=== PATIENT | female | born 1990 | race Asian ===

== ENCOUNTER → 2017-07-04 | Outpatient (CLI) | payer BC ==
[2017-07-04 12:13] LABS: HEMATOCRIT 35.5 % (37-47); HEMOGLOBIN 12.1 g/dL (12.0-16.0)
== END | disposition home or self-care (01) ==
LOC: C.LAB1850 09:47
PROVIDERS: ATTEND Obstetrics & Gynecology
DX: Z34.03 Encounter for supervision of normal first pregnancy, third trimester (principal)

== ENCOUNTER → 2017-08-15 | Outpatient (CLI) | payer BC ==
[~2017-08-15] MED LIST: CALC500C70 PO; ERGO500037 PO; PRENTAB26 PO
== END | disposition home or self-care (01) ==
LOC: C.LABSPEC 11:06
PROVIDERS: ATTEND Obstetrics & Gynecology
DX: Z34.03 Encounter for supervision of normal first pregnancy, third trimester (principal)

== ENCOUNTER 2017-09-03 00:26 | Inpatient (IN) | payer BC ==
[~2017-09-03] VITALS: Ht 167.6 cm; Wt 75.5 kg
[2017-09-03] MEDS ORDERED: LACTATED RINGER'S 1000ML 1,000 ML IV SCH (00:52)
[2017-09-03] MEDS ORDERED: LACTATED RINGER'S 1000ML 1,000 ML IV PRN (00:52)
[2017-09-03] MEDS ORDERED: BUPIVACAINE 0.25% 30 ML VIAL ONE (01:17)
[2017-09-03] MEDS ORDERED: EpHEDrine SULFATE INJ 50 MG/ML AMP ONE (01:18)
[2017-09-03] MEDS ORDERED: FENTANYL 2MCG/ML ROPIV 1.25MG/ML 100ML BAG EPI ONE (01:19)
[2017-09-03] MEDS ORDERED: FENTANYL CITRATE INJ 50 MCG/1 ML 2 ML VIAL ONE (01:19)
[2017-09-03 01:29] LABS: HEMATOCRIT 38.8 % (37-47); HEMOGLOBIN 13.4 g/dL (12.0-16.0); MEAN CELL VOLUME 90.4 fL (80-100); MEAN CORPUSCULAR HEMOGLOBIN 31.2 pg (25-34); MEAN CORPUSCULAR HGB CONC 34.5 g/dl (32-36); MEAN PLATELET VOLUME 10.5 fL (7.4-10.4); PLATELET COUNT 167 K/uL (130-400); RED CELL DISTRIBUTION WIDTH CV 13.8 % (11.5-14.5); RED CELL DISTRIBUTION WIDTH SD 45.4 fL (36.4-46.3); WHITE BLOOD COUNT 10.35 K/uL (4.8-10.8)
[2017-09-03] MEDS ORDERED: LACTATED RINGER'S 1000ML 500 ML IV PRN (02:42)
[2017-09-03] MEDS ORDERED: NALOXONE HCL INJ 1 MG in SODIUM CHLORIDE 0.9% 1000ML 1,000 ML IV PRN (02:42)
[2017-09-03] MEDS ORDERED: ONDANSETRON INJ 2 MG/ML 2 ML VIAL IV PRN (02:45)
[2017-09-03] MEDS ORDERED: EpHEDrine SULFATE INJ 50 MG/ML AMP IV PRN (02:45)
[2017-09-03] MEDS ORDERED: FENTANYL 2MCG/ML ROPIV 1.25MG/ML 100ML BAG EPI PRN (02:45)
[2017-09-03] MEDS ORDERED: NALOXONE HCL INJ 0.4 MG/1 ML VIAL/CARP IV PRN (02:45)
[2017-09-03] MEDS ORDERED: NALBUPHINE HCL INJ 10 MG/ML AMP IV PRN (02:45)
[2017-09-03] MEDS ORDERED: DiphenhydrAMINE HCL 50 MG/ML VIAL IV PRN (02:45)
[2017-09-03 02:55] VITALS: Ht 167.6 cm; Wt 75.5 kg
[2017-09-03] MEDS ORDERED: CALC500C70 PO (03:00)
[2017-09-03] MEDS ORDERED: PRENTAB26 PO (03:00)
[2017-09-03] MEDS ORDERED: ERGO500037 PO (03:00)
[2017-09-03] MEDS ORDERED: OXYTOCIN 30 UNITS/500ML NSS IV ONE (03:27)
[2017-09-03] MEDS ORDERED: OXYTOCIN 30 UNITS/500ML NSS IV PRN (05:30)
[2017-09-03] MEDS ORDERED: LANOLIN OINT EXT PRN (05:30)
[2017-09-03] MEDS ORDERED: BENZOCAINE 20% AER SPR 82.5 GM CAN EXT PRN (05:30)
[2017-09-03] MEDS ORDERED: OXYCODONE/ACETAMINOPHEN 5-325 TAB PO PRN (05:30)
[2017-09-03] MEDS ORDERED: ACETAMINOPHEN 325 MG TAB PO PRN (05:30)
[2017-09-03] MEDS ORDERED: SUPERCREAM 0.870 % 15GM JAR EXT PRN (05:30)
--- NOTE | 2017-09-03 07:31 | Anesthesia Procedure Note ---
Anesthesia Epidural Removal Nt Date & Time Sep 03, 2017 at 07:31 Vital Signs Pain Intensity: 5.0 Notes Mental Status: alert / awake / arousable, participated in evaluation Nausea / Vomiting: adequately controlled Pain: adequately controlled Airway Patency, RR, SpO2: stable & adequate BP & HR: stable & adequate Hydration State: stable & adequate Neuraxial Anesthesia: was administered Anesthetic Complications: no major complications apparent, pt satisfied with anesthetic care Epidural: removed without complications, with tip intact
[2017-09-03 08:20] VITALS: BP 112/74; PULSE 99; TEMP 37; O2SAT 98
[2017-09-03] MEDS: PRENATAL VITAMIN TAB PO SCH ×2 (08:59→09:00)
[2017-09-03] MEDS: DOCUSATE SODIUM 100 MG CAP PO SCH ×3 (08:59→20:40)
[2017-09-03] MEDS: CALCIUM 600MG + VIT D 400 IU TAB PO SCH (09:00)
[2017-09-03] MEDS: IBUPROFEN 600 MG TAB PO PRN ×3 (09:01→20:42)
--- NOTE | 2017-09-03 09:14 | DELIVERY SUMMARY ---
DATE OF OPERATION: 09/03/2017 DATE OF DELIVERY: 09/03/2017 Patient is a 26-year-old 1, P0 white female, who presented at 39+ weeks with ruptured membranes and active labor. She received adequate and effective epidural analgesia. She progressed to full dilation. She pushed effectively over intact perineum for delivery of a viable male infant. Mouth and nasopharynx were suctioned on the perineum. The posterior arm delivered after the vertex and the rest of the infant delivered easily. There was spontaneous crying. The infant was moving all 4 limbs. The cord was then clamped and cut. Cord blood was obtained. The placenta was expressed intact with a 3-vessel cord. A second-degree perineal laceration was repaired with 3-0 chromic in the usual fashion. Estimated blood loss was 400 mL. bleeding was controlled with dilute Pitocin. Mother and were doing well after delivery. I attest to the content of the Intraoperative Record and any orders documented therein. Any exception s are noted below.
[2017-09-03 12:19] VITALS: BP 117/78; PULSE 95; TEMP 36.8; O2SAT 99
[2017-09-03 15:30] VITALS: BP 123/83; PULSE 90; TEMP 37; O2SAT 100
[2017-09-03 20:35] VITALS: BP 126/84; PULSE 94; TEMP 36.7
[2017-09-03 23:05] VITALS: BP 122/83; PULSE 87; TEMP 36.7
[2017-09-04 03:35] VITALS: BP 106/70; PULSE 77; TEMP 36.4
[2017-09-04 06:54] LABS: HEMOGLOBIN 9.1 g/dL (12.0-16.0)
--- NOTE | 2017-09-04 07:07 | Progress Note ---
Subjective Sep 04, 2017. Subjective conversation w/ patient, conversation w/ family, physical exam, chart review, lab review Ambulation: ambulating normally Voiding: no voiding problems Passing Gas: Yes Diet Tolerance: Regular Diet Lochia: Moderate Feeding Type: Breast Feeding Review of Systems Constitutional: No fever, No chills Respiratory: No cough, No shortness of breath Cardiac: No chest pain, No palpitations Abdomen: No pain, No nausea, No vomiting Female : No dysuria Objective Vital Signs Date Time Temp Pulse Resp B/P (MAP) Pulse Ox O2 Delivery O2 Flow Rate FiO2 09/04/17 03:35 36.4 77 16 106/70 (82) Room Air 09/03/17 23:05 Room Air 09/03/17 23:05 36.7 87 18 122/83 (96) Room Air 09/03/17 20:35 36.7 94 18 126/84 (98) Room Air 09/03/17 15:30 37.0 90 16 123/83 (96) 100 Room Air 09/03/17 15:30 100 Room Air 09/03/17 12:19 36.8 95 12 117/78 (91) 99 Room Air 09/03/17 08:20 98 Room Air 09/03/17 08:20 37.0 99 16 112/74 (87) 98 Room Air Physical Exam General Appearance: WELL-APPEARING, WD/WN, NO APPARENT DISTRESS Respiratory/Chest: lungs clear, no respiratory distress Cardiovascular: regular rate, rhythm, no murmur Abdomen: non tender, soft Fundus: Firm, Relation to Umbilicus (1 cm below ) Extremities: non-tender, normal inspection Laboratory Results Last 24 Hours Test 09/04/17 06:28 Hemoglobin 9.1 g/dL Hematocrit 27.0 % Medications Current Inpatient Medications Medications (Trade) Dose Ordered Sig/[place] Route Start Time Stop Time Status Last Admin Dose Admin Calcium/Vitamin D (Caltrate Plus Tab) 1 tab DAILY PO 09/03/17 08:00 10/03/17 07:59 09/03/17 09:00 1 TAB Oxytocin (Pitocin IV) 30 units UD PRN IV 09/03/17 05:30 10/03/17 05:29 09/03/17 05:31 30 UNITS Benzocaine (Dermoplast Aero Spr) 1 appln PRN PRN EXT 09/03/17 05:30 10/03/17 05:29 09/03/17 09:00 1 APPLN Cocaine HCl (Supercream 0.870% Cr) BID PRN EXT 09/03/17 05:30 09/17/17 05:29 Lanolin (Lanolin Oint) PRN PRN EXT 09/03/17 05:30 10/03/17 05:29 Prenat Multivit/ [place]/Iron/Folic Ac ( Vitamin Tab) 1 tab DAILY PO 09/03/17 08:00 10/03/17 07:59 09/03/17 08:59 1 TAB Ibuprofen (Motrin Tab) 600 mg Q4H PRN PO 09/03/17 05:30 10/03/17 05:29 09/03/17 20:42 600 MG Acetaminophen (Tylenol Tab) 650 mg Q6H PRN PO 09/03/17 05:30 10/03/17 05:29 Oxycodone/ Acetaminophen (Percocet 5-325mg Tab) 1 tab Q4H PRN PO 09/03/17 05:30 09/17/17 05:29 09/03/17 23:02 1 TAB Bisacodyl (Dulcolax Tab) 5 mg 20 PO 09/04/17 20:00 09/04/17 20:01 Docusate Sodium (coLACE CAP) 100 mg BID PO 09/03/17 08:00 10/03/17 07:59 09/03/17 20:40 100 MG Assessment and Plan Post- Day#: 1 Continue Routine Care: 26, F, , O+/GBS-/RI, PPD1. Reviewed pts vital, WNL. Hgb pending this am. No signs or sx of anemia. Patient is doing well clinically. Plan 1. Cont. pp care; ambulate, monitor lochia, support BF, control pain 2. Discussed Dc planning with the patient Resident Physician Supervision Note: I interviewed and examined the patient. Discussed with Dr. Gallegos and agree with findings and plan as documented in the note. Any exceptions or clarifications are listed here: Desires discharge later today. Documented By: Heather Perez
--- NOTE | 2017-09-04 07:09 | Discharge Instructions ---
Discharge Instructions Date of Service Sep 04, 2017. Admission Reason for Admission: LABOR Discharge Discharge Diagnosis / Problem: vaginal delivery Discharge Goals Goal(s): Routine recovery after delivery Medications Continue Dispensed Medications: supercream, dermaplast, tucks, lansinoh Activity Recommendations Activity Limitations: per Instructions/Follow-up section . Instructions / Follow-Up Instructions / Follow-Up ACTIVITY RECOMMENDATIONS: * Gradual return to full activity over the next 2-3 weeks. * No lifting - nothing heavier than baby over the next 2-3 weeks. * Do not engage in vigorous exercise, sexual activity or sports until cleared by your physician. * Do not drive or operate any motorized equipment until cleared by your physician. * You may shower/bathe daily. MEDICATIONS: For discomfort or pain, you may use Acetaminophen (Tylenol), Ibuprofen (Advil), or Naproxen (Aleve) following the package directions. For constipation you may use Colace following the package directions. BREAST CARE: If you are not breast feeding: * Wear a supportive bra 24 hours a day for one to two weeks. * Avoid stimulating your breasts and nipples as much as possible during the first few weeks after delivery. * When taking a shower, have the warm water hit your back, not breasts. * When your breasts feel full, apply ice packs. Usually three to four times a day helps ease the discomfort. * Take a mild pain medication (Tylenol / Motrin) when you are uncomfortable. If breast feeding: * Use breast milk to lubricate nipples. Lansinoh cream may be used for sore nipples. You do not need to remove cream prior to breast feeding. If using a different brand of cream, check the label for directions regarding removal of cream prior to nursing. * Wear a supportive bra. * If having problems with breasts or breast feeding, call a finance consultant or your health care provider. EPISIOTOMY CARE: After delivery, if you have an episiotomy (stitches), the following steps will ease discomfort and aid healing. * For the first 24 hours after delivery, place ice packs next to your episiotomy to help reduce swelling. * After the first 24 hour-period, sitz baths, either portable or in the tub, are suggested. A shower with a shower arm sprayed over the episiotomy may be comforting. * Bruna care should be done after each voiding and bowel movement. Squirt warm water from a plastic bottle over the perineum (region of the body between the anus and urinary opening) and pat dry. * Use Dermoplast to ease discomfort. Shake container. Edwards directly over the episiotomy. Place a Tucks on a clean sanitary pad next to your episiotomy. SPECIAL CARE INSTRUCTIONS: When you are discharged from the hospital, it is important for you to follow the instructions listed below: * During the first week at home, you should be able to care for yourself and your baby. In addition, the usual light household activities are encouraged. * Limit your activities to the way you feel. Do not try to clean the house or move furniture. Be sensible. * If you actively engage in sports and have done so up until the time of your delivery, you may resume these activities as soon as you feel able. This may take up to one month or even longer. Use good judgment. * Continue to take your vitamins for at least six weeks after the of your baby. * Your diet need not be limited unless you were on a special diet before your delivery. Breast-feeding mothers need around 2500 calories per day and at least 64-80 ounces of fluid per day (8 to 10 glasses). * You should eat foods from the four major food groups. Crash diets or fad diets are to be avoided. Eating lean meats, fresh fruits and vegetables, low-fat dairy products, high fiber foods and a regular exercise program, will help you get back to your pre- weight without putting your health at risk. * Constipation is sometimes a problem after delivery. Take a mild laxative as needed. If breast feeding, Milk of Magnesia is acceptable to use. You may use a suppository or Fleets enema if no episiotomy. * A daily shower or tub bath is suggested. Be sure to thoroughly and gently dry the perineum. * A bloody vaginal discharge will usually continue until around four weeks post . A small amount of bleeding may continue for as long as six weeks. Vaginal discharge changes from the bright red bleeding after delivery to pink then brownish and finally yellowish-pink before becoming white and disappearing. * Bleeding may increase with activity. Your first period may come in 4-8 weeks. If you are breast feeding, your period may be delayed even longer. * [place] (sex) can begin whenever both you and your partner feel comfortable and do not have any form of genital infection. It is recommended that you wait at least six weeks for internal and external healing to occur. If you have questions, please talk to your health care practitioner. A condom should be used to prevent infection and . * Foreplay, gentle intercourse and lubrication is very important the first several times to prevent pain. A water-based lubricant such as K-Y jelly or Astroglide may be used. * If you have RH negative blood and your baby is RH positive, you will receive RHOGAM by injection prior to discharge. The nurse will give you a card to keep with you that has the date and place that you received RHOGAM after delivery. * During your care, you had a Rubella screen done to check for the presence of rubella antibodies in your blood. If your test was negative, you will receive a Rubella vaccine prior to discharge. This vaccine may cause a fever, soreness at the injection site and flu-like symptoms. If these symptoms persist, notify your health care practitioner. is not advised for one month after a Rubella vaccine. * Verbalizes understanding of car seat law as reviewed with patient nursing. * Car Seat hand-out given and reviewed with patient by nursing. * Shaken baby information reviewed with patient by nursing. Call you doctor if: * Heavy bleeding (saturating several pads an hour) or passing clots the size of your fist. * A fever >101 degrees F (38.3 degrees C) on two occasions four hours apart and /or chills. * Unusual pain in the pelvic or vaginal areas. * "Baby Blues" lasting longer than two weeks. If you have any questions or concerns, call your health care practitioner at . FOLLOW UP VISIT: * Please call the office at to schedule a 6 week examination. It is important you keep this appointment. It is important for you to make arrangements for either yearly or twice yearly check-ups thereafter. Current Hospital Diet Patient's current hospital diet: Vegetarian Diet, Low Lactose Diet Discharge Diet Recommended Diet: Regular Diet, Regular OB Diet Pending Studies Studies pending at discharge: no Medical Emergencies . Who to Call and When: Medical Emergencies: If at any time you feel your situation is an emergency, please call 911 immediately. . Non-Emergent Contact Non-Emergency issues call your: Primary Care Provider, Alarm Installer . . "Provider Documentation" section prepared by Jakob Gallegos. .
[2017-09-04] MEDS: DOCUSATE SODIUM 100 MG CAP PO SCH ×2 (08:26→19:55)
[2017-09-04] MEDS: PRENATAL VITAMIN TAB PO SCH (08:26)
[2017-09-04] MEDS: IBUPROFEN 600 MG TAB PO PRN ×3 (08:26→19:55)
[2017-09-04] MEDS: CALCIUM 600MG + VIT D 400 IU TAB PO SCH (08:47)
[2017-09-04 08:50] VITALS: BP 123/82; PULSE 92; TEMP 36.4; O2SAT 100
[2017-09-04 10:06] VITALS: O2SAT 100
[2017-09-04 16:30] VITALS: BP 108/67; PULSE 91; TEMP 36.4
[2017-09-04] MEDS ORDERED: BISACODYL 5 MG TABEC PO SCH (20:00)
[2017-09-04 23:45] VITALS: BP 122/82; PULSE 82; TEMP 36.6; O2SAT 99
[2017-09-05 03:45] VITALS: BP 127/80; PULSE 77; TEMP 36.8; O2SAT 99
[2017-09-05] MEDS: IBUPROFEN 600 MG TAB PO PRN ×2 (05:09→10:07)
--- NOTE | 2017-09-05 06:53 | Progress Note ---
Subjective Sep 05, 2017. Subjective conversation w/ patient, physical exam, chart review, lab review Ambulation: ambulating normally Voiding: no voiding problems Passing Gas: Yes Diet Tolerance: Regular Diet Lochia: Small Feeding Type: Breast Feeding Review of Systems Constitutional: No fever, No chills Respiratory: No cough, No shortness of breath Cardiac: No chest pain, No palpitations Abdomen: No pain, No nausea, No vomiting Female : No dysuria Objective Vital Signs Date Time Temp Pulse Resp B/P (MAP) Pulse Ox O2 Delivery O2 Flow Rate FiO2 09/05/17 03:45 36.8 77 18 127/80 (96) 99 Room Air 09/04/17 23:45 99 Room Air 09/04/17 23:45 36.6 82 18 122/82 (95) 99 Room Air 09/04/17 16:30 Room Air 09/04/17 16:30 36.4 91 16 108/67 (81) Room Air 09/04/17 10:06 100 Room Air 09/04/17 09:00 Room Air 09/04/17 08:50 36.4 92 18 123/82 (96) 100 Physical Exam General Appearance: WELL-APPEARING, WD/WN, NO APPARENT DISTRESS Respiratory/Chest: lungs clear, no respiratory distress Cardiovascular: regular rate, rhythm, no murmur Abdomen: non tender, soft Fundus: Firm, Relation to Umbilicus (1 cm below ) Extremities: non-tender, normal inspection Medications Current Inpatient Medications Medications (Trade) Dose Ordered Sig/[place] Route Start Time Stop Time Status Last Admin Dose Admin Calcium/Vitamin D (Caltrate Plus Tab) 1 tab DAILY PO 09/03/17 08:00 10/03/17 07:59 09/04/17 08:47 1 TAB Oxytocin (Pitocin IV) 30 units UD PRN IV 09/03/17 05:30 10/03/17 05:29 09/03/17 05:31 30 UNITS Benzocaine (Dermoplast Aero Spr) 1 appln PRN PRN EXT 09/03/17 05:30 10/03/17 05:29 09/03/17 09:00 1 APPLN Cocaine HCl (Supercream 0.870% Cr) BID PRN EXT 09/03/17 05:30 09/17/17 05:29 Lanolin (Lanolin Oint) PRN PRN EXT 09/03/17 05:30 10/03/17 05:29 Prenat Multivit/ [place]/Iron/Folic Ac ( Vitamin Tab) 1 tab DAILY PO 09/03/17 08:00 10/03/17 07:59 09/04/17 08:26 1 TAB Ibuprofen (Motrin Tab) 600 mg Q4H PRN PO 09/03/17 05:30 10/03/17 05:29 09/05/17 05:09 600 MG Acetaminophen (Tylenol Tab) 650 mg Q6H PRN PO 09/03/17 05:30 10/03/17 05:29 Oxycodone/ Acetaminophen (Percocet 5-325mg Tab) 1 tab Q4H PRN PO 09/03/17 05:30 09/17/17 05:29 09/03/17 23:02 1 TAB Docusate Sodium (coLACE CAP) 100 mg BID PO 09/03/17 08:00 10/03/17 07:59 09/04/17 19:55 100 MG Assessment and Plan Post- Day#: 2 Continue Routine Care: 26, F, , O+/GBS-/RI, PPD2. Reviewed pts vital, WNL. Hgb was 13.4 on admission-->9.1 on 09/05. No signs or sx of anemia. Patient is doing well clinically. Plan 1. Cont. pp care; ambulate, monitor lochia, support BF, control pain 2. Discussed Dc planning with the patient Resident Physician Supervision Note: I interviewed and examined the patient. Discussed with Dr. Gallegos and agree with findings and plan as documented in the note. Any exceptions or clarifications are listed here: Pt desires d/c, will start exogenous Fe, f/u in 6 weeks Documented By: Michael Jenkins
[2017-09-05] MEDS ORDERED: FERR1TAB13 PO (07:26)
[2017-09-05 07:40] VITALS: BP 122/75; PULSE 94; TEMP 36.3; O2SAT 96
[2017-09-05] MEDS: DOCUSATE SODIUM 100 MG CAP PO SCH (07:59)
[2017-09-05] MEDS: PRENATAL VITAMIN TAB PO SCH (07:59)
[2017-09-05] MEDS: CALCIUM 600MG + VIT D 400 IU TAB PO SCH (07:59)
[2017-09-05 10:45] VITALS: BP_DIAS 75; PULSE 94; TEMP 36.3
== END 2017-09-05 11:00 | disposition home or self-care (01) | DRG 775 ==
LOC: C.LD 00:26 → C.OPB 00:26 → C.LD 00:54 → C.MS4N 08:51 → C.OBG 15:13 → EDSTATUS 09-07 00:25
PROVIDERS: ADMIT Obstetrics & Gynecology; ATTEND Obstetrics & Gynecology
PROC: 10E0XZZ Delivery of Products of Conception, External Approach (ICD-10-PCS; principal; 2017-09-03)
PROC: 0KQM0ZZ Repair Perineum Muscle, Open Approach (ICD-10-PCS; principal; 2017-09-03)
DX: O70.1 Second degree perineal laceration during delivery (principal); Z37.0 Single live birth; Z3A.39 39 weeks gestation of pregnancy